=== PATIENT | male | born 1985 | race African-American/Black ===

== ENCOUNTER 2016-09-25 11:30 | Emergency (ER) | payer SELFPAY | END 2016-09-25 14:37 | disposition home or self-care (01) | LOC: D.ER 11:30 | DX: J45.901 Unspecified asthma with (acute) exacerbation (principal) ==

== ENCOUNTER 2018-04-23 16:04 | Emergency (ER) | payer MEDICAID ==
[~2018-04-23] VITALS: Ht 182.9 cm; Wt 83.2 kg
[2018-04-23 16:20] VITALS: Ht 182.9 cm; Wt 83.2 kg
[2018-04-23] MEDS ORDERED: VENTOLIN HFA18 GM INH ×2 (16:21→17:39)
[2018-04-23 16:55] LABS: BASOPHILS 0.3 % (0-2); EOSINOPHILS 10.4 % (0-7); HEMOGLOBIN 17.1 g/dL (13.5-17.5); IMMATURE GRANULOCYTES 0.2 % (0-5); LYMPHOCYTES 40.6 % (15-50); MCH 32.4 pg (26.0-34.0); MCHC 34.9 g/dL (31.0-37.0); MCV 92.8 fL (80.0-100.0); MEAN PLATELET VOLUME 10.9 fL (7.4-10.4); MONOCYTES 7.5 % (2-11); PLATELET COUNT 205 10x3/uL (130-400); RBC 5.28 10x6/uL (4.20-6.10); RDW 12.6 % (11.5-14.5); WBC 6.4 10x3/uL (4.8-10.8)
[2018-04-23 17:17] LABS: ANION GAP 14.6 mmol/L (8-16); BILIRUBIN - TOTAL 0.46 mg/dL (0.2-1.3); CARBON DIOXIDE 26.3 mmol/L (21.0-32.0); CREATININE - SERUM 1.2 mg/dL (0.6-1.3); POTASSIUM - SERUM 4.9 mmol/L (3.5-5.1); PROTEIN - SERUM 7.5 g/dL (6.4-8.2)
[2018-04-23] MEDS ORDERED: ALBUTEROL2.5 MG/3 M INH (17:39)
[2018-04-23] MEDS ORDERED: PREDNISONE50 MG PO (17:40)
[2018-04-23 18:03] VITALS: BP 123/89
== END 2018-04-23 18:00 | disposition home or self-care (01) ==
LOC: D.ER 16:04
PROVIDERS: Family Medicine
DX: J45.901 Unspecified asthma with (acute) exacerbation (principal); R06.02 Shortness of breath

== ENCOUNTER 2018-06-12 01:57 | Emergency (ER) | payer MEDICAID ==
[~2018-06-12] VITALS: Ht 182.9 cm; Wt 82.3 kg
[~2018-06-12 01:57] MED LIST: ALBUTEROL2.5 MG/3 M INH; PREDNISONE50 MG PO; VENTOLIN HFA18 GM INH
[2018-06-12 02:03] VITALS: Ht 182.9 cm; Wt 82.3 kg
[2018-06-12] MEDS ORDERED: KEFLEX500 MG PO (02:54)
[2018-06-12] MEDS ORDERED: TORADOL10 MG PO (02:54)
[2018-06-12 03:32] VITALS: BP 119/67
== END 2018-06-12 03:32 | disposition home or self-care (01) ==
LOC: D.ER 01:57
DX: K04.7 Periapical abscess without sinus (principal)

== ENCOUNTER 2018-12-20 13:08 | Emergency (ER) | payer MEDICAID ==
[~2018-12-20] VITALS: Ht 182.9 cm; Wt 82.3 kg
[~2018-12-20 13:08] MED LIST changes: +KEFLEX500 MG PO; +TORADOL10 MG PO
[2018-12-20 13:20] VITALS: Ht 182.9 cm; Wt 82.3 kg
[2018-12-20 13:45] LABS: BASOPHILS 0.8 % (0-2); EOSINOPHILS 7.8 % (0-7); HEMATOCRIT 46.8 % (42.0-54.0); HEMOGLOBIN 16.3 g/dL (13.5-17.5); LYMPHOCYTES 37.9 % (15-50); MCH 31.8 pg (26.0-34.0); MCHC 34.8 g/dL (31.0-37.0); MCV 91.4 fL (80.0-100.0); MEAN PLATELET VOLUME 10.8 fL (7.4-10.4); MONOCYTES 4.9 % (2-11); NEUTROPHILS 48.6 % (40-80); PLATELET COUNT 216 10x3/uL (130-400); RBC 5.12 10x6/uL (4.20-6.10); RDW 12.2 % (11.5-14.5); WBC 6.5 10x3/uL (4.8-10.8)
[2018-12-20 14:04] LABS: ALBUMIN 4.3 g/dL (3.4-5.0); ANION GAP 13.2 mmol/L (8-16); BILIRUBIN - TOTAL 0.49 mg/dL (0.2-1.3); CARBON DIOXIDE 26.5 mmol/L (21.0-32.0); CREATININE - SERUM 1.2 mg/dL (0.6-1.3); POTASSIUM - SERUM 4.7 mmol/L (3.5-5.1); PROTEIN - SERUM 7.5 g/dL (6.4-8.2)
[2018-12-20] MEDS ORDERED: ALBUTEROL SULF8.5 GM INH (14:54)
[2018-12-20] MEDS ORDERED: ALBUTEROL2.5 MG/3 M INH (14:54)
[2018-12-20] MEDS ORDERED: PREDNISONE20 MG PO (14:58)
[2018-12-20 15:27] VITALS: BP 111/78
== END 2018-12-20 15:28 | disposition home or self-care (01) ==
LOC: D.ER 13:08
PROVIDERS: Family Medicine
DX: J45.901 Unspecified asthma with (acute) exacerbation (principal)

== ENCOUNTER 2019-01-09 06:26 | Emergency (ER) | payer MEDICAID ==
[~2019-01-09 06:26] MED LIST changes: +ALBUTEROL SULF8.5 GM INH; +PREDNISONE20 MG PO
[2019-01-09 06:33] VITALS: BMI 24.6
[2019-01-09 06:52] LABS: BASOPHILS 0.1 % (0-2); EOSINOPHILS 1.1 % (0-7); HEMATOCRIT 45.3 % (42.0-54.0); HEMOGLOBIN 15.9 g/dL (13.5-17.5); IMMATURE GRANULOCYTES 0.2 % (0-5); LYMPHOCYTES 29.2 % (15-50); MCH 31.7 pg (26.0-34.0); MCHC 35.1 g/dL (31.0-37.0); MCV 90.4 fL (80.0-100.0); MEAN PLATELET VOLUME 10.7 fL (7.4-10.4); MONOCYTES 5.4 % (2-11); PLATELET COUNT 212 10x3/uL (130-400); RBC 5.01 10x6/uL (4.20-6.10); RDW 12.5 % (11.5-14.5); WBC 9.7 10x3/uL (4.8-10.8)
[2019-01-09 07:06] LABS: ALBUMIN 4.3 g/dL (3.4-5.0); ALKALINE PHOSPHATASE 53 U/L (46-116); ALT (SGPT) 26 U/L (10-68); CALC OSMOLALITY 277 mosm/kg (275-300); CALCIUM 9.2 mg/dL (8.5-10.1); CARBON DIOXIDE 28.8 mmol/L (21.0-32.0); CHLORIDE - SERUM 106 mmol/L (98-107); CREATININE - SERUM 1.1 mg/dL (0.6-1.3); GLUCOSE 107 mg/dL (74-106); POTASSIUM - SERUM 4.2 mmol/L (3.5-5.1); PROTEIN - SERUM 7.5 g/dL (6.4-8.2); SODIUM 140 mmol/L (136-145); UREA NITROGEN 10 mg/dL (7-18); eGFR NON AFRICAN AMERICAN 82 mL/min (90-120)
[2019-01-09 07:09] LABS: AMYLASE - SERUM 61 U/L (25-115); LIPASE 75 U/L (73-393); TROPONIN-I < 0.017 ng/mL (0.000-0.060)
[2019-01-09 09:10] VITALS: BP 128/84
== END 2019-01-09 10:07 | disposition other institution (70) ==
LOC: D.ER 06:26
PROVIDERS: Family Medicine
DX: R10.9 Unspecified abdominal pain (principal); K52.9 Noninfective gastroenteritis and colitis, unspecified; K92.2 Gastrointestinal hemorrhage, unspecified

== ENCOUNTER 2020-02-28 16:47 | Emergency (ER) | payer MEDICAID ==
[~2020-02-28] VITALS: Ht 182.9 cm; Wt 83.2 kg
[2020-02-28 17:01] VITALS: Ht 182.9 cm; Wt 83.2 kg
[2020-02-28] MEDS ORDERED: HYDROCODON-ACE1 EA10 PO (17:33)
[2020-02-28] MEDS ORDERED: PENICILLIN V P500 MG PO (17:33)
[2020-02-28 18:06] VITALS: BP 142/78
== END 2020-02-28 18:07 | disposition home or self-care (01) ==
LOC: D.ER 16:47
DX: K08.89 Other specified disorders of teeth and supporting structures (principal); K04.7 Periapical abscess without sinus; J45.909 Unspecified asthma, uncomplicated

== ENCOUNTER 2020-04-30 16:07 | Emergency (ER) | payer BC ==
[~2020-04-30] VITALS: Ht 182.9 cm; Wt 0.0 kg
[~2020-04-30 16:07] MED LIST changes: +HYDROCODON-ACE1 EA10 PO; +PENICILLIN V P500 MG PO
[2020-04-30 16:09] VITALS: Ht 182.9 cm; Wt 0.0 kg
[2020-04-30] MEDS ORDERED: CLEOCIN HCL300 MG PO (19:10)
[2020-04-30] MEDS ORDERED: NAPROSYN500 MG PO (19:10)
[2020-04-30 19:52] VITALS: BP 132/89
== END 2020-04-30 19:52 | disposition home or self-care (01) ==
LOC: D.ER 16:07
DX: K04.7 Periapical abscess without sinus (principal); K08.89 Other specified disorders of teeth and supporting structures; J45.909 Unspecified asthma, uncomplicated

== ENCOUNTER → 2020-05-21 | Emergency (ER) | payer BC ==
[~2020-05-21] VITALS: Ht 182.9 cm; Wt 78.6 kg
[~2020-05-21] MED LIST changes: +CLEOCIN HCL300 MG PO; +MEDROL DOSE PACK4 MG PO; +NAPROSYN500 MG PO; +OMNICEF300 MG PO; +TESSALON PERLE100 MG PO
[2020-05-21 22:33] VITALS: BP 126/82; Ht 182.9 cm; Wt 78.6 kg
[2020-05-21 23:05] LABS: BASOPHILS 0.1 % (0-2); HEMATOCRIT 42.7 % (42.0-54.0); HEMOGLOBIN 14.7 g/dL (13.5-17.5); IMMATURE GRANULOCYTES 0.1 % (0-5); LYMPHOCYTES 18.3 % (15-50); MCHC 34.4 g/dL (31.0-37.0); MEAN PLATELET VOLUME 10.2 fL (7.4-10.4); MONOCYTES 7.2 % (2-11); NEUTROPHILS 72.3 % (40-80); PLATELET COUNT 215 10x3/uL (130-400); RBC 4.59 10x6/uL (4.20-6.10); RDW 12.5 % (11.5-14.5); WBC 8.9 10x3/uL (4.8-10.8)
[2020-05-21 23:13] LABS: CALC OSMOLALITY 281 mosm/kg (275-300); CALCIUM 8.5 mg/dL (8.5-10.1); CHLORIDE - SERUM 104 mmol/L (98-107); CREATININE - SERUM 1.1 mg/dL (0.6-1.3); GLUCOSE 85 mg/dL (74-106); POTASSIUM - SERUM 3.3 mmol/L (3.5-5.1); SODIUM 142 mmol/L (136-145); UREA NITROGEN 13 mg/dL (7-18); eGFR NON AFRICAN AMERICAN 81 mL/min (90-120)
[2020-05-21 23:19] LABS: ALBUMIN 4.2 g/dL (3.4-5.0); ALKALINE PHOSPHATASE 65 U/L (30-120); ALT (SGPT) 34 U/L (10-68); BILIRUBIN - TOTAL 0.73 mg/dL (0.2-1.3); PROTEIN - SERUM 7.1 g/dL (6.4-8.2)
== END | disposition home or self-care (01) ==
LOC: D.ER 22:27
PROVIDERS: Family Medicine
DX: J40 Bronchitis, not specified as acute or chronic (principal); E87.6 Hypokalemia; R06.02 Shortness of breath